=== PATIENT | male | born 1960 | race Caucasian/White ===

== ENCOUNTER 2020-02-13 10:08 | Day surgery (SDC) | payer OTHER ==
--- NOTE | 2020-02-06 13:58 | HP ---
DATE OF SURGERY: 02/13/2020 HISTORY OF PRESENT ILLNESS: The patient is a 51 year old gentleman who presents to the office with complaints of bulging, pain and burning area. He said that he had been lifting about three weeks ago. He moved a fireplace that was about 500 pounds. He does see a bulge and it does reduce. PAST MEDICAL HISTORY: Hypertension, arthritis, hepatitis C. PAST SURGICAL HISTORY: None. ALLERGIES: NKDA. MEDICATIONS: Lisinopril. He states he is going to be on a new medicine for hepatitis C. FAMILY HISTORY: None. SOCIAL HISTORY: Smokes three quarter a pack a day. No alcohol. REVIEW OF SYSTEMS: CONSTITUTIONAL: Denies fever or chills. CHEST: Denies shortness of breath. CVS: Denies chest pain. ABDOMEN: Reports bilateral groin pain. Denies nausea, vomiting, diarrhea, constipation or rectal bleeding. INTEGUMENTARY: Negative. PHYSICAL EXAMINATION: GENERAL: No acute distress. CHEST: Nonlabored. No shortness of breath. CVS: Regular rate and rhythm. ABDOMEN: Soft, nontender to palpation. Bilateral inguinal hernia reducible. EXTREMITIES: No edema. NEUROLOGIC: Alert. PSYCHIATRIC: Appropriate. IMPRESSION: Symptomatic bilateral inguinal hernia reducible. PLAN: Bilateral inguinal hernia repair with mesh with Dr. Deni Herrera. As dictated by Radha Cordon NP.
[~2020-02-13 10:08] MED LIST: CEFAZOLIN 2 GM-D5W BAG** 2 GM/50 ML ML IV SCH; KEFZOL 1 GM ONE; Lactated Ringers 1,000 ML IV ONE; Lactated Ringers 1,000 ML IV SCH; Sensorcaine 0.25% 10 ML ONE
[2020-02-13] MEDS ORDERED: Lactated Ringers 1,000 ML IV ONE (10:20)
[2020-02-13] MEDS ORDERED: CEFAZOLIN 2 GM-D5W BAG** 2 GM/50 ML ML IV ONE (10:20)
[2020-02-13] MEDS ORDERED: DUONEB 0.5-3 MG/3 ml Neb IH ONE (10:37)
[2020-02-13 10:47] LABS: Barbiturate,Urine NEGATIVE (NEGATIVE); Benzodiazepine,Urine NEGATIVE (NEGATIVE); Cocaine,Urine NEGATIVE (NEGATIVE); Methadone,Urine NEGATIVE (NEGATIVE); Opiate,Urine NEGATIVE (NEGATIVE); PCP,Urine NEGATIVE (NEGATIVE); THC,Urine NEGATIVE (NEGATIVE)
[2020-02-13 11:08] LABS: Amphetamine,Urine POSITIVE (NEGATIVE)
[2020-02-13] MEDS ORDERED: TORAdol 30 mg Injection ONE ×2 (11:21→14:27)
[2020-02-13] MEDS ORDERED: Xylocaine-Mpf 2% 5 Ml Vial ONE (11:21)
[2020-02-13] MEDS ORDERED: Zemuron 100 MG/10 ML ONE (11:21)
[2020-02-13] MEDS ORDERED: BRIDION 200MG/2ML IV ONE (11:21)
[2020-02-13] MEDS ORDERED: Zofran 4 MG/2 ML VIAL ONE (11:21)
[2020-02-13] MEDS ORDERED: Decadron 4 MG INJ ONE (11:21)
[2020-02-13] MEDS ORDERED: DIPRIVAN 200 MG/20 ML IV ONE (11:21)
[2020-02-13] MEDS ORDERED: SUBLIMAZE 100 MCG/2 ML ONE (11:21)
[2020-02-13] MEDS ORDERED: Versed 2 MG/2 ML Injection ONE (11:21)
[2020-02-13] MEDS ORDERED: Ketamine HCl 50 MG/ML ONE (12:09)
[2020-02-13] MEDS ORDERED: PHENYLEPHRINE HCL ONE (12:22)
[2020-02-13] MEDS ORDERED: Sensorcaine 0.25% 10 ML ONE (12:27)
[2020-02-13] MEDS ORDERED: Ephedrine Sulfate 50 MG/ML ONE (13:13)
--- NOTE | 2020-02-13 14:39 | OP ---
SURGERY DATE/TIME: 02/13/2020 8367 PREOPERATIVE DIAGNOSIS: Symptomatic bilateral inguinal hernia. POSTOPERATIVE DIAGNOSIS: Symptomatic bilateral indirect inguinal hernia, 2 inches on the right and 3 inches on the left. PROCEDURE: Bilateral inguinal herniorrhaphy with a limited small piece of mesh bilaterally. SURGEON: Deni Herrera M.D. ANESTHESIA: General. COMPLICATIONS: None. CONDITION: Stable. ESTIMATED BLOOD LOSS: None. DRAINS: None. INDICATION: The patient with symptomatic hernias. DESCRIPTION OF PROCEDURE: The old bikini cut was marked. Small limited incisions. Right side addressed first. Dissection down to external oblique. External oblique defined. External ring defined. It was opened. Ilioinguinal nerve identified and preserved. A 2 inch indirect hernia was opened. It was suture ligated under direct visualization at its base. A 4 inch lipoma and the cord was taken and tied off with 2-0 Vicryl. The floor was enforced with 1x4 mesh secured with 0 Prolene in a Tony ligament-type fashion making sure not to entrap any underlying nerves, 0 on the cephalad leaf and then 2-0 Prolene across the top. It was one clamp tight. The knots were all buried with 3-0 Vicryl. It looked excellent. It felt smooth. External oblique closed with 0 Vicryl. Audie fascia closed with 2-0 Vicryl. Skin closed with 4-0 Vicryl. The left side was nearly totally identical other than the ilioinguinal nerve was not prominent on this side at all. The indirect hernia sac was a little longer but there was no sliding component and there was no lipoma on the left. The repair was identical. The patient tolerated the procedure satisfactorily. The number was called for the family ([phone]) and was reported as the wrong number.
[2020-02-13] MEDS ORDERED: Romazicon 0.5 MG/5 ML Injection ONE (14:45)
[2020-02-13 15:46] VITALS: PULSE 85
[2020-02-13 16:37] VITALS: BP 115/66
[2020-02-13 16:38] VITALS: O2SAT 100
== END 2020-02-13 16:49 | disposition home or self-care (01) ==
LOC: SDC 10:08
PROVIDERS: ATTEND Surgery
DX: K40.20 Bilateral inguinal hernia, without obstruction or gangrene, not specified as recurrent (principal)
CPT/HCPCS: 64488; 80307; 94640; J0690; J1100; J1885; J2250; J2370; J2405; J2704; J3010; A9270-GY